=== PATIENT | female | born 1980 | race Hispanic/Latino ===

== ENCOUNTER 2017-10-14 15:02 | Emergency (ER) | payer SELFPAY ==
[2017-10-14] MEDS ORDERED: diphenhydrAMINE 50 MG/ML VIAL ONE (15:13)
[2017-10-14] MEDS ORDERED: methylPREDNISolone Sod Succ/PF 125 MG/2 ML VIAL ONE (15:13)
== END 2017-10-14 16:30 | disposition home or self-care (01) ==
LOC: ERS 15:02
DX: T78.1XXA Other adverse food reactions, not elsewhere classified, initial encounter (principal); E78.5 Hyperlipidemia, unspecified; F17.210 Nicotine dependence, cigarettes, uncomplicated
CPT/HCPCS: 96374; 96375; J1200; J2930

== ENCOUNTER 2017-11-19 16:44 | Outpatient (CLI) | payer OTHER | END 2017-11-19 16:45 | disposition home or self-care (01) | LOC: BICRAD 16:44 | PROVIDERS: ATTEND Internal Medicine Pulmonary Disease | DX: Z20.1 Contact with and (suspected) exposure to tuberculosis (principal) | CPT/HCPCS: 71046 ==

== ENCOUNTER 2019-02-08 14:24 | Emergency (ER) | payer SELFPAY ==
[2019-02-08 15:14] LABS: #Lymphocytes 3.8 thou/uL (1.20-3.40); #Monocytes 0.5 thou/uL (0.11-0.59); #Neutrophils 5.5 thou/uL (1.40-6.50); %Basophils 0.5 % (0.0-1.0); %Eosinophils 0.4 % (0.0-10.0); %Lymphocytes 38.3 % (21.0-51.0); %Monocytes 5.4 % (0.0-10.0); %Neutrophils 55.5 % (42.0-75.0); Hemoglobin 12.2 g/dL (12.0-16.0); Mean Corpuscular Volume 91.1 fL (78.0-98.0); Mean Platelet Volume 7.9 fL (7.4-10.4); Platelet Count 214 thou/uL (130-400); RBC Distribution Width 11.2 % (11.5-14.5); Red Blood Cell (RBC) Count 3.92 mill/uL (4.20-5.40); White Blood Cell (WBC) Count 9.9 thou/uL (4.8-10.8)
--- NOTE | 2019-02-08 15:16 | ULT ---
GALLBLADDER ULTRASOUND: Date: 02/08/19 INDICATION: Right upper quadrant pain, emergency exam. No prior comparison imaging. FINDINGS: There is wall thickening of the gallbladder, approximating 5 mm, although the gallbladder is contract ed, which does limit assessment. No shadowing cholelithiasis or pericholecystic edema is confirmed. T he common duct is dilated at 6 mm. No focal hepatic lesion. No ascites. IMPRESSION: Contracted gallbladder with wall thickening. There is also mild dilatation of the common duct. Correl ation with biliary laboratory values would prove useful to exclude a developing biliary obstructive p rocess. As necessary, surgical consultation may also prove useful. POS: [facility]
[2019-02-08 15:35] LABS: ALT (SGPT) 11 U/L (8-55); AST (SGOT) 15 U/L (5-34); Albumin 4.1 g/dL (3.5-5.0); Alkaline Phosphatase 58 U/L (40-150); Anion Gap 11 mmol/L (10-20); BUN (Urea Nitrogen) 10 mg/dL (7.0-18.7); Bilirubin, Total 0.2 mg/dL (0.2-1.2); Calc. Creatinine Clearance 0 mL/min (70-130); Calcium 9.5 mg/dL (7.8-10.44); Carbon Dioxide 24 mmol/L (22-29); Chloride 106 mmol/L (98-107); Estimated GFR-MDRD Greater than 90; Globulin 2.7 g/dL (2.4-3.5); Glucose 88 mg/dL (70-105); Lipase 23 U/L (8-78); Protein, Total 6.8 g/dL (6.0-8.3); Sodium 137 mmol/L (136-145)
[2019-02-08] MEDS ORDERED: Ketorolac Tromethamine 60 MG/2 ML VIAL ONE (16:58)
[2019-02-08] MEDS ORDERED: Ondansetron PF 4 MG/2 ML Vial ONE (16:58)
[2019-02-08] MEDS ORDERED: Acetaminophen 500 MG TAB ONE (16:59)
[2019-02-08] MEDS ORDERED: Ondansetron ODT 4 MG TAB ONE (17:05)
== END 2019-02-08 17:45 | disposition home or self-care (01) ==
LOC: ERS 14:24
DX: K80.50 Calculus of bile duct without cholangitis or cholecystitis without obstruction (principal); E03.9 Hypothyroidism, unspecified; F17.210 Nicotine dependence, cigarettes, uncomplicated
CPT/HCPCS: 36415; 76705; 80053; 83690; 85025; 96372; J1885; J2405; Q0162

== ENCOUNTER 2019-12-30 12:41 | Emergency (ER) | payer SELFPAY ==
[2019-12-30] MEDS ORDERED: Ketorolac Tromethamine 30 MG/ML VIAL ONE (13:22)
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
[2019-12-30 13:54] LABS: Pregnancy Test - Urine (BHCG) Negative (Negative); Pregu Control Background? CLEAR/WHITE (CLR/WHITE); Pregu Control Bar Appear? YES (CONTROL BAR); Specific Gravity 1.012 (1.002-1.036)
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
== END 2019-12-30 14:06 | disposition home or self-care (01) ==
LOC: ERS 12:41
DX: S29.012A Strain of muscle and tendon of back wall of thorax, initial encounter (principal); S16.1XXA Strain of muscle, fascia and tendon at neck level, initial encounter; E03.9 Hypothyroidism, unspecified; F17.210 Nicotine dependence, cigarettes, uncomplicated; V89.2XXA Person injured in unspecified motor-vehicle accident, traffic, initial encounter
CPT/HCPCS: 72125; 72128; 81025; 96372; J1885

== ENCOUNTER 2023-05-15 14:17 | Outpatient (CLI) | payer OTHER | END 2023-05-15 14:18 | disposition home or self-care (01) | LOC: BICRAD 14:17 | PROVIDERS: ATTEND Family Medicine | DX: R76.12 Nonspecific reaction to cell mediated immunity measurement of gamma interferon antigen response without active tuberculosis (principal) | CPT/HCPCS: 71046 ==

== ENCOUNTER 2024-07-27 19:03 | Emergency (ER) | payer SELFPAY ==
[2024-07-27 20:18] LABS: #Basophils 0.03 10x3/uL (0.0-0.2); #Eosinophils Less than 0.03 10x3/uL (0.0-0.7); %Basophils 0.4 % (0.0-1.0); %Eosinophils 0.1 % (0.0-10.0); %Lymphocytes 39.1 % (21.0-51.0); %Monocytes 5.2 % (0.0-10.0); %Neutrophils 55.1 % (42.0-75.0); Hematocrit 40.6 % (36.0-47.0); Mean Corpuscular Hemoglobin 28.6 pg (27.0-31.0); Mean Corpuscular Volume 89.4 fL (78.0-98.0); Mean Platelet Volume 9.9 fL (7.4-10.4); Platelet Count 287 10x3/uL (130-400); RBC Distribution Width 12.3 % (11.5-14.5); Red Blood Cell (RBC) Count 4.54 mill/uL (4.20-5.40)
[2024-07-27 20:33] LABS: BHCG - Serum Negative (NEGATIVE); Pregs Control Background? CLEAR/WHITE (CLR/WHITE); Pregs Control Bar Appear? YES (CONTROL BAR)
[2024-07-27 20:37] LABS: ALT (SGPT) 9 U/L (Less than 34); AST (SGOT) 19 U/L (11-34); Albumin 4.1 g/dL (3.1-4.5); Alkaline Phosphatase 75 U/L (40-110); Anion Gap 12 mmol/L (10-20); BUN (Urea Nitrogen) 11 mg/dL (7.0-18.7); Bilirubin, Total 0.2 mg/dL (0.3-1.2); CK (CPK) 61 U/L (29-168); Calc. Creatinine Clearance 0 mL/min (70-130); Calcium 9.7 mg/dL (7.8-10.44); Carbon Dioxide 29 mmol/L (22-29); Chloride 106 mmol/L (98-107); Estimated GFR 110; Globulin 3.4 g/dL (2.4-3.5); Glucose 106 mg/dL (70-105); Lipase 23 U/L (8-78); Potassium 3.9 mmol/L (3.5-5.1); Protein, Total 7.5 g/dL (6.0-8.3); Sodium 143 mmol/L (136-145)
[2024-07-27] MEDS ORDERED: Ondansetron ODT 4 MG TAB ONE (20:37)
[2024-07-27 21:35] LABS: Bacteria/HPF None Seen HPF (None Seen); Bilirubin Negative (Negative); Blood, Urine Negative (Negative); CAUTI Indications for Culture Pelvic or flank pain; Clarity Clear (Clear); Glucose, Urine (Dipstick) Normal (Negative); Ketone, Urine Negative (Negative); Leukocyte Negative Leu/uL (Negative); Nitrite Negative (Negative); Protein, Urine (Dipstick) Negative (Neg-Trace); RBC/HPF None Seen HPF (0-3); Specific Gravity, Urine 1.022 (1.002-1.036); Urobilinogen Normal mg/dL (Less than 2); WBC/HPF None Seen HPF (0-3); pH, Urine 6.5 (5.0-9.0)
[2024-07-27 21:36] LABS: Urine Culture Reflex No No
== END 2024-07-27 23:17 | disposition home or self-care (01) ==
LOC: ERS 19:03
DX: R11.2 Nausea with vomiting, unspecified (principal); R35.0 Frequency of micturition; R10.31 Right lower quadrant pain; F17.210 Nicotine dependence, cigarettes, uncomplicated
CPT/HCPCS: 36415; 80053; 81001; 82550; 83690; 84703; 85025; 87086; 87428; 99283; Q0162